=== PATIENT | female | born 1935 | race Caucasian/White ===

== ENCOUNTER 2021-04-02 13:40 | Observation (INO) ==
[2021-04-02 14:44] LABS: Basophils # 0.1 K/mcL (0.0-0.2); Basophils % 0.9 %; Eosinophils # 0.3 K/mcL (0.0-0.6); Eosinophils % 3.1 %; Hemoglobin 15.8 g/dL (11.5-15.4); Immature Granulocytes % 0.6 % (0-4); Lymphocytes % 10.5 %; Mean Corpuscular HGB Conc 31.6 g/dL (31.6-35.5); Mean Corpuscular Hemoglobin 27.6 pg (28.0-33.3); Mean Corpuscular Volume 87.3 fL (83.0-100.0); Mean Platelet Volume 9.9 fL (9.4-12.4); Monocytes # 0.9 K/mcL (0.0-1.3); Monocytes % 9.9 %; Neutrophils # 6.8 K/mcL (1.6-8.9); Platelet Count 177 K/mcL (140-400); Red Blood Count 5.73 M/mcL (3.82-4.97); Red Cell Distribution Width 14.3 % (11.5-14.5)
[2021-04-02 15:24] LABS: Troponin I 0.03 ng/mL (< 0.04)
[2021-04-02 15:37] LABS: Albumin 3.7 g/dL (3.5-5.7); Albumin/Globulin Ratio 1.3 (1.1-2.2); Bilirubin,Total 0.4 mg/dL (0.3-1.0); Calcium 9.8 mg/dL (8.6-10.3); Globulin 2.9 g/dL (2.4-3.5); Total Protein 6.6 g/dL (6.4-8.9)
[2021-04-02 15:53] LABS: Bilirubin,Urine Negative (Negative); Blood,Urine Negative (Negative); Clarity,Urine Clear (Clear); Color,Urine Colorless (Yellow); Glucose,Urine (UA) Normal (Normal); Ketones,Urine Negative (Negative); Leukocyte Esterase,Urine Negative (Negative); Nitrite,Urine Negative (Negative); Protein,Urine Negative (Neg-Trace); Specific Gravity,Urine 1.009 (1.010-1.025); Urobilinogen,Urine Normal (Normal)
[2021-04-02] MEDS ORDERED: Naloxone 0.4 MG/ML INJ IVP PRN (17:30)
[2021-04-02] MEDS ORDERED: Melatonin 3 MG TABLET PO PRN (17:30)
[2021-04-02] MEDS ORDERED: Ondansetron 4 MG/2 ML VIAL IVP PRN (17:30)
[2021-04-02] MEDS ORDERED: Acetaminophen 325 MG TABLET PO PRN (17:30)
[2021-04-02 18:50] LABS: Thyroid Stimulating Hormone 0.16 mcIU/mL (0.340-5.600)
[2021-04-02] MEDS ORDERED: *HR* Metoprolol 5 MG/5 ML VIAL IVP PRN (19:20)
[2021-04-02] MEDS: Aspirin Enteric Coated 81 MG Tablet PO SCH (19:46)
[2021-04-03 03:10] LABS: BUN/Creatinine Ratio 17 (6-26); Blood Urea Nitrogen 18 mg/dL (8-23); Calcium 9.6 mg/dL (8.6-10.3); Carbon Dioxide 23 mEq/L (23-29); Chloride 103 mEq/L (98-107); Chol/HDL Ratio 3.9 (0-4.9); Cholesterol 194 mg/dL (< 200); Glucose 104 mg/dL (70-105); HDL Cholesterol 50 mg/dL (40-59); Hemoglobin 15.3 g/dL (11.5-15.4); LDL Cholesterol,Calculated 121 mg/dL (< 100); Mean Corpuscular HGB Conc 33.3 g/dL (31.6-35.5); Mean Corpuscular Hemoglobin 28.5 pg (28.0-33.3); Mean Corpuscular Volume 85.7 fL (83.0-100.0); Mean Platelet Volume 10.1 fL (9.4-12.4); Osmolality,Calculated 282 (280-300); Platelet Count 170 K/mcL (140-400); Red Blood Count 5.37 M/mcL (3.82-4.97); Sodium 135 mEq/L (136-145); Triglycerides 116 mg/dL (< 150); White Blood Count 8.1 K/mcL (4.3-11.1); eGFR For African Americans > 60 (> 60); eGFR For Non-African Americans 51 (> 60)
[2021-04-03] MEDS: Aspirin Enteric Coated 81 MG Tablet PO SCH (07:51)
[2021-04-03 08:05] LABS: Estimated Average Glucose 131 mg/dl; Hemoglobin A1C 6.2 %
[2021-04-03] MEDS ORDERED: Isovue-370 500 ML BOTTLE IVP ONE (08:37)
[2021-04-03] MEDS ORDERED: Loratadine 10 MG TABLET PO SCH (09:00)
[2021-04-03] MEDS ORDERED: Magnesium Oxide 400 MG TABLET PO SCH (09:00)
[2021-04-03] MEDS ORDERED: atenoloL 25 MG TABLET PO SCH (09:00)
[2021-04-03 10:23] VITALS: BP 140/76
[2021-04-03 16:14] LABS: Triiodothyronine (T3) Total 1.56 ng/mL (0.87-1.78)
== END 2021-04-03 17:57 | disposition home or self-care (01) ==
LOC: 3BNU 13:40 → EMEROOARM 13:40 → 3BNU 17:33
PROVIDERS: ADMIT Internal Medicine; ATTEND Internal Medicine

== ENCOUNTER 2022-05-01 16:43 | Inpatient (IN) ==
[2022-05-01 17:24] LABS: Basophils # 0.1 K/mcL (0.0-0.2); Basophils % 0.8 %; Eosinophils # 0.3 K/mcL (0.0-0.6); Eosinophils % 2.6 %; Hematocrit 43.9 % (35.3-44.9); Immature Granulocytes % 0.4 % (0-4); Lymphocytes # 1.5 K/mcL (0.6-4.6); Lymphocytes % 15.1 %; Mean Corpuscular HGB Conc 31.9 g/dL (31.6-35.5); Mean Corpuscular Hemoglobin 26.9 pg (28.0-33.3); Mean Corpuscular Volume 84.3 fL (83.0-100.0); Mean Platelet Volume 9.9 fL (9.4-12.4); Monocytes # 1.3 K/mcL (0.0-1.3); Monocytes % 12.6 %; Platelet Count 207 K/mcL (140-400); Red Blood Count 5.21 M/mcL (3.82-4.97); Red Cell Distribution Width 16.1 % (11.5-14.5); Segmented Neutrophils % 68.5 %; White Blood Count 10.2 K/mcL (4.3-11.1)
[2022-05-01 17:44] LABS: Calcium 10.4 mg/dL (8.6-10.3); Potassium 4.4 mEq/L (3.5-5.1); Troponin I 6.57 ng/mL (< 0.04)
[2022-05-01] MEDS ORDERED: Iopamidol - 370 500 ML MLS IVP ONE (18:07)
[2022-05-01 20:26] LABS: Influenza A PCR Negative (Negative); Influenza B PCR Negative (Negative); Resp. Syncytial Virus PCR Negative (Negative)
[2022-05-01 20:27] LABS: SARS-CoV-2 by PCR (In House) Negative (Negative)
[2022-05-01] MEDS ORDERED: *HR* Heparin 5,000 UNIT/ML VIAL IVP ONE (20:41)
[2022-05-01] MEDS ORDERED: *HR* Heparin 5,000 UNIT/ML VIAL IVP PRN ×2 (20:41)
[2022-05-01] MEDS ORDERED: Aspirin 325 MG TABLET PO ONE (20:41)
[2022-05-01] MEDS ORDERED: Furosemide 20 MG/2 ML VIAL IVP ONE (20:54)
[2022-05-01] MEDS: Heparin 25,000UNIT/250ML 1/2NS 25,000 UNIT/250 ML IV.SOLN IVC SCH (21:10)
[2022-05-01] MEDS ORDERED: Melatonin 3 MG TABLET PO PRN (21:24)
[2022-05-01] MEDS ORDERED: Naloxone 0.4 MG/ML INJ IVP PRN (21:24)
[2022-05-01] MEDS ORDERED: Nystatin Cream 15 GM TUBE TP PRN (21:27)
[2022-05-01 21:47] LABS: INR 1.1; Prothrombin Time 11.8 Seconds (9.4-12.1)
[2022-05-01 21:49] LABS: Activated Partial Thrombo Time 35.5 Seconds (26.0-36.0)
[2022-05-01 22:07] LABS: Heparin anti-factor XA UFH < 0.04 IU/mL (0.30-0.70)
[2022-05-01] MEDS: Nitroglycerin 0.4 MG TAB.SUBL SL PRN ×2 (22:25→22:35)
[2022-05-01] MEDS: diazePAM 5 MG TABLET PO SCH (22:30)
[2022-05-02 03:23] LABS: Basophils # 0.1 K/mcL (0.0-0.2); Basophils % 0.6 %; Eosinophils # 0.1 K/mcL (0.0-0.6); Eosinophils % 0.8 %; Hematocrit 42.2 % (35.3-44.9); Hemoglobin 13.7 g/dL (11.5-15.4); Immature Granulocytes % 0.4 % (0-4); Lymphocytes # 1.5 K/mcL (0.6-4.6); Lymphocytes % 13.4 %; Mean Corpuscular HGB Conc 32.5 g/dL (31.6-35.5); Mean Corpuscular Hemoglobin 26.7 pg (28.0-33.3); Mean Corpuscular Volume 82.3 fL (83.0-100.0); Mean Platelet Volume 10.3 fL (9.4-12.4); Monocytes # 1.2 K/mcL (0.0-1.3); Monocytes % 10.2 %; Neutrophils # 8.4 K/mcL (1.6-8.9); Platelet Count 204 K/mcL (140-400); Red Blood Count 5.13 M/mcL (3.82-4.97); Red Cell Distribution Width 16.2 % (11.5-14.5); Segmented Neutrophils % 74.6 %; White Blood Count 11.3 K/mcL (4.3-11.1)
[2022-05-02 03:42] LABS: Calcium 9.7 mg/dL (8.6-10.3); Chol/HDL Ratio 2.8 (0-4.9); Magnesium 1.8 mg/dL (1.6-2.6); Potassium 4.2 mEq/L (3.5-5.1)
[2022-05-02] MEDS ORDERED: Perflutren Lipid Microsphere 1.3 ML in 0.9 % Sodium Chloride 8.7 ML IVP PRN (07:59)
[2022-05-02] MEDS ORDERED: Furosemide 40 MG/4 ML VIAL IVP SCH (08:00)
[2022-05-02] MEDS ORDERED: polyethylene glycoL 3350 17 GM POWD.PACK PO SCH (09:00)
[2022-05-02] MEDS: Loratadine 10 MG TABLET PO SCH (10:10)
[2022-05-02] MEDS: atenoloL 25 MG TABLET PO SCH (10:10)
[2022-05-02] MEDS: Aspirin Enteric Coated 81 MG Tablet PO SCH (10:10)
[2022-05-02] MEDS: Magnesium Oxide 400 MG TABLET PO SCH (10:10)
[2022-05-02] MEDS ORDERED: 0.9 % Sodium Chloride 250 ML IVC ONE ×2 (19:27→23:34)
[2022-05-02] MEDS: diazePAM 5 MG TABLET PO SCH (20:53)
[2022-05-02] MEDS ORDERED: 0.9 % Sodium Chloride 250 ML ONE (23:40)
[2022-05-03 05:42] LABS: Basophils # 0.1 K/mcL (0.0-0.2); Basophils % 1.3 %; Eosinophils # 0.5 K/mcL (0.0-0.6); Eosinophils % 5.2 %; Hematocrit 38.8 % (35.3-44.9); Hemoglobin 12.6 g/dL (11.5-15.4); Immature Granulocytes % 0.3 % (0-4); Lymphocytes # 1.8 K/mcL (0.6-4.6); Lymphocytes % 20.8 %; Mean Corpuscular HGB Conc 32.5 g/dL (31.6-35.5); Mean Corpuscular Hemoglobin 27.3 pg (28.0-33.3); Mean Platelet Volume 9.9 fL (9.4-12.4); Monocytes # 1.2 K/mcL (0.0-1.3); Platelet Count 176 K/mcL (140-400); Red Blood Count 4.62 M/mcL (3.82-4.97); Red Cell Distribution Width 16.5 % (11.5-14.5); Segmented Neutrophils % 58.4 %; White Blood Count 8.6 K/mcL (4.3-11.1)
[2022-05-03 06:05] LABS: Troponin I 3.39 ng/mL (< 0.04)
[2022-05-03] MEDS: Heparin 25,000UNIT/250ML 1/2NS 25,000 UNIT/250 ML IV.SOLN IVC SCH (06:08)
[2022-05-03 06:17] LABS: Thyroid Stimulating Hormone 1.546 mcIU/mL (0.340-5.600)
[2022-05-03 06:54] LABS: Calcium 8.8 mg/dL (8.6-10.3); Magnesium 1.8 mg/dL (1.6-2.6); Potassium 3.8 mEq/L (3.5-5.1)
[2022-05-03] MEDS ORDERED: Furosemide 40 MG/4 ML VIAL IVP SCH (09:00)
[2022-05-03] MEDS: atenoloL 25 MG TABLET PO SCH (09:21)
[2022-05-03] MEDS: Aspirin Enteric Coated 81 MG Tablet PO SCH (09:29)
[2022-05-03] MEDS: Loratadine 10 MG TABLET PO SCH (09:29)
[2022-05-03] MEDS: Magnesium Oxide 400 MG TABLET PO SCH (09:29)
[2022-05-03] MEDS: Acetaminophen 325 MG TABLET PO PRN (16:17)
[2022-05-03] MEDS ORDERED: Pantoprazole 40 MG VIAL IVP ONE (17:54)
[2022-05-03] MEDS ORDERED: Morphine Sulfate 2 MG/ML SYRINGE IVP PRN (17:55)
[2022-05-03] MEDS: diazePAM 5 MG TABLET PO SCH (19:45)
[2022-05-03] MEDS: Nitroglycerin 0.4 MG TAB.SUBL SL PRN (22:01)
[2022-05-04 01:47] LABS: Basophils # 0.1 K/mcL (0.0-0.2); Eosinophils # 0.5 K/mcL (0.0-0.6); Eosinophils % 5.2 %; Hematocrit 42.2 % (35.3-44.9); Hemoglobin 13.2 g/dL (11.5-15.4); Immature Granulocytes % 0.5 % (0-4); Lymphocytes # 1.8 K/mcL (0.6-4.6); Lymphocytes % 18.9 %; Mean Corpuscular HGB Conc 31.3 g/dL (31.6-35.5); Mean Corpuscular Hemoglobin 26.6 pg (28.0-33.3); Mean Corpuscular Volume 85.1 fL (83.0-100.0); Mean Platelet Volume 10.8 fL (9.4-12.4); Monocytes # 1.4 K/mcL (0.0-1.3); Monocytes % 14.7 %; Neutrophils # 5.5 K/mcL (1.6-8.9); Platelet Count 192 K/mcL (140-400); Red Blood Count 4.96 M/mcL (3.82-4.97); Red Cell Distribution Width 16.6 % (11.5-14.5); Segmented Neutrophils % 59.7 %; White Blood Count 9.3 K/mcL (4.3-11.1)
[2022-05-04 02:06] LABS: Calcium 9.3 mg/dL (8.6-10.3); Magnesium 1.9 mg/dL (1.6-2.6); Potassium 3.7 mEq/L (3.5-5.1)
[2022-05-04] MEDS: Nitroglycerin 0.4 MG TAB.SUBL SL PRN ×3 (08:18→08:29)
[2022-05-04] MEDS: Aspirin Enteric Coated 81 MG Tablet PO SCH (09:45)
[2022-05-04] MEDS: Loratadine 10 MG TABLET PO SCH (09:45)
[2022-05-04] MEDS: Magnesium Oxide 400 MG TABLET PO SCH (09:46)
[2022-05-04] MEDS: atenoloL 25 MG TABLET PO SCH (09:46)
[2022-05-04] MEDS ORDERED: 0.9 % Sodium Chloride 2,000 ML ONE (10:09)
[2022-05-04] MEDS ORDERED: Iopamidol - 370 200 ML INFUS..BTL ONE (10:10)
[2022-05-04] MEDS ORDERED: Heparin 1,000 UNITS/500 mL 500 ML ONE (10:10)
[2022-05-04] MEDS ORDERED: Nitroglycerin 1,000 MCG/5 ML VIAL IV ONE (10:10)
[2022-05-04] MEDS ORDERED: *HR* Heparin 10,000 UNIT/10 ML VIAL ONE (10:10)
[2022-05-04] MEDS ORDERED: Tirofiban 12.5 MG/250ML 12.5 MG/250 ML BAG IVC SCH (11:45)
[2022-05-04] MEDS: Ondansetron 4 MG/2 ML VIAL IVP PRN (18:57)
[2022-05-04] MEDS: diazePAM 5 MG TABLET PO SCH (19:49)
[2022-05-05 02:35] LABS: Basophils % 0.5 %; Eosinophils % 0.5 %; Hematocrit 40.5 % (35.3-44.9); Hemoglobin 13.1 g/dL (11.5-15.4); Immature Granulocytes % 0.5 % (0-4); Lymphocytes # 0.7 K/mcL (0.6-4.6); Lymphocytes % 8.7 %; Mean Corpuscular HGB Conc 32.3 g/dL (31.6-35.5); Mean Corpuscular Hemoglobin 27.3 pg (28.0-33.3); Mean Corpuscular Volume 84.4 fL (83.0-100.0); Mean Platelet Volume 10.3 fL (9.4-12.4); Monocytes # 0.9 K/mcL (0.0-1.3); Monocytes % 10.7 %; Neutrophils # 6.7 K/mcL (1.6-8.9); Platelet Count 180 K/mcL (140-400); Red Cell Distribution Width 16.5 % (11.5-14.5); Segmented Neutrophils % 79.1 %; White Blood Count 8.5 K/mcL (4.3-11.1)
[2022-05-05 02:58] LABS: INR 1.1; Prothrombin Time 12.1 Seconds (9.4-12.1)
[2022-05-05 03:26] LABS: Albumin 3.4 g/dL (3.5-5.7); Albumin/Globulin Ratio 1.4 (1.1-2.2); Bilirubin,Total 1.7 mg/dL (0.3-1.0); Calcium 9.3 mg/dL (8.6-10.3); Globulin 2.5 g/dL (2.4-3.5); Magnesium 1.9 mg/dL (1.6-2.6); Potassium 4.3 mEq/L (3.5-5.1); Total Protein 5.9 g/dL (6.4-8.9)
[2022-05-05] MEDS: Aspirin Enteric Coated 81 MG Tablet PO SCH (07:33)
[2022-05-05] MEDS: Loratadine 10 MG TABLET PO SCH (07:33)
[2022-05-05] MEDS: Magnesium Oxide 400 MG TABLET PO SCH (07:33)
[2022-05-05] MEDS: atenoloL 25 MG TABLET PO SCH (07:34)
[2022-05-05] MEDS ORDERED: 0.9 % Sodium Chloride 250 ML IVC ONE (07:44)
[2022-05-05] MEDS: Ondansetron 4 MG/2 ML VIAL IVP PRN (20:01)
[2022-05-05] MEDS ORDERED: *HR* Metoprolol 5 MG/5 ML VIAL IVP ONE ×2 (20:12→20:15)
[2022-05-05] MEDS ORDERED: DilTIAZem 50 MG/50 ML IV.SOLN IVC SCH (21:15)
[2022-05-05] MEDS: Apixaban 2.5 MG TABLET PO SCH (22:01)
[2022-05-05] MEDS: diazePAM 5 MG TABLET PO SCH (22:05)
[2022-05-05] MEDS ORDERED: Furosemide 20 MG/2 ML VIAL IVP ONE (22:33)
[2022-05-06] MEDS ORDERED: 0.9 % Sodium Chloride 250 ML IVC ONE (00:30)
[2022-05-06] MEDS ORDERED: 0.9 % Sodium Chloride 250 ML IV ONE (01:00)
[2022-05-06] MEDS ORDERED: Albumin 25% 25gram/100mL 25 GM/100 ML IV.SOLN IVPB ONE (01:07)
[2022-05-06 03:27] LABS: Influenza A PCR Negative (Negative); Influenza B PCR Negative (Negative); Resp. Syncytial Virus PCR Negative (Negative)
[2022-05-06 03:48] LABS: ABG Base Excess -4 mEq/L (-2 to 3); ABG HCO3 20 mEq/L (21-27); ABG Oxygen Saturation 97 % (95-98); ABG PCO2 32 mmHg (35-45); ABG PO2 86 mmHg (85-104); ABG TCO2 21 mEq/L (20-26)
[2022-05-06 03:49] LABS: SARS-CoV-2 by PCR (In House) Negative (Negative)
[2022-05-06 04:26] LABS: Basophils # 0.1 K/mcL (0.0-0.2); Basophils % 0.2 %; Hematocrit 34.3 % (35.3-44.9); Lymphocytes # 0.5 K/mcL (0.6-4.6); Lymphocytes % 2.2 %; Mean Corpuscular HGB Conc 31.5 g/dL (31.6-35.5); Mean Corpuscular Hemoglobin 26.7 pg (28.0-33.3); Mean Corpuscular Volume 84.9 fL (83.0-100.0); Mean Platelet Volume 10.7 fL (9.4-12.4); Monocytes % 8.6 %; Platelet Count 146 K/mcL (140-400); Red Blood Count 4.04 M/mcL (3.82-4.97)
[2022-05-06 04:27] LABS: Hemoglobin 10.8 g/dL (11.5-15.4); Neutrophils # 19.8 K/mcL (1.6-8.9); White Blood Count 22.7 K/mcL (4.3-11.1)
[2022-05-06 04:54] LABS: Calcium 9.1 mg/dL (8.6-10.3)
[2022-05-06] MEDS: Cefepime HCl 1,000 MG in 0.9 % Sodium Chloride 10 ML IVPB SCH ×2 (06:06→17:22)
[2022-05-06] MEDS ORDERED: 0.9 % Sodium Chloride 500 ML IVC ONE (06:50)
[2022-05-06 09:46] LABS: VBG HCO3 19 mEq/L (21-27); VBG PCO2 29 mmHg (41-51); VBG PH 7.44 pH Units (7.32-7.42); VBG PO2 222 mmHg (25-50)
[2022-05-06] MEDS: Aspirin Enteric Coated 81 MG Tablet PO SCH (10:54)
[2022-05-06] MEDS: Loratadine 10 MG TABLET PO SCH (10:54)
[2022-05-06] MEDS: Metoprolol XL (24 HR) Succ 25 MG TAB.ER.24H PO SCH (10:54)
[2022-05-06] MEDS: Magnesium Oxide 400 MG TABLET PO SCH (10:54)
[2022-05-06] MEDS: Apixaban 2.5 MG TABLET PO SCH (10:54)
[2022-05-06] MEDS: diazePAM 5 MG TABLET PO SCH (20:30)
[2022-05-06 23:05] LABS: Bacteria,Urine Few per hpf (None-Few); Bilirubin,Urine Small (Negative); Blood,Urine Small (Negative); Clarity,Urine Turbid (Clear); Color,Urine Dark-Yellow (Yellow); Glucose,Urine (UA) Normal (Normal); Hyaline Casts,Urine Few per lpf (None Seen); Ketones,Urine Trace mg/dL (Negative); Leukocyte Esterase,Urine Small (Negative); Mucus,Urine Few per lpf (None-Few); Nitrite,Urine Negative (Negative); Protein,Urine 70 mg/dL (Neg-Trace); RBC,Urine 50-100 per hpf (0-3); Specific Gravity,Urine 1.027 (1.010-1.025); Squamous Epithelial Cell,Urine Few per hpf (None-Few); WBC,Urine 15-30 per hpf (0-3)
[2022-05-06 23:17] LABS: Creatinine,Urine 54 mg/dL; Sodium, Urine < 10.0 mEq/L
[2022-05-07 01:59] LABS: Basophils % 0.2 %; Eosinophils % 0.1 %; Hemoglobin 10.8 g/dL (11.5-15.4)
[2022-05-07 02:00] LABS: Basophils # 0.1 K/mcL (0.0-0.2); Hematocrit 33.5 % (35.3-44.9); Immature Granulocytes % 2.2 % (0-4); Lymphocytes # 1.2 K/mcL (0.6-4.6); Lymphocytes % 4.3 %; Mean Corpuscular HGB Conc 32.2 g/dL (31.6-35.5); Mean Corpuscular Hemoglobin 27.1 pg (28.0-33.3); Mean Platelet Volume 10.5 fL (9.4-12.4); Monocytes # 2.5 K/mcL (0.0-1.3); Monocytes % 8.9 %; Neutrophils # 23.8 K/mcL (1.6-8.9); Platelet Count 135 K/mcL (140-400); Red Blood Count 3.99 M/mcL (3.82-4.97); Red Cell Distribution Width 17.1 % (11.5-14.5); Segmented Neutrophils % 84.3 %; White Blood Count 28.2 K/mcL (4.3-11.1)
[2022-05-07 02:16] LABS: Calcium 8.8 mg/dL (8.6-10.3); Potassium 4.2 mEq/L (3.5-5.1)
[2022-05-07 02:18] LABS: Albumin 3.3 g/dL (3.5-5.7); Albumin/Globulin Ratio 1.4 (1.1-2.2); Bilirubin,Direct 2.7 mg/dL (0.0-0.2); Bilirubin,Total 3.7 mg/dL (0.3-1.0); Globulin 2.4 g/dL (2.4-3.5); Total Protein 5.7 g/dL (6.4-8.9)
[2022-05-07] MEDS: Cefepime HCl 1,000 MG in 0.9 % Sodium Chloride 10 ML IVPB SCH ×2 (06:10→17:43)
[2022-05-07] MEDS: Magnesium Oxide 400 MG TABLET PO SCH (08:31)
[2022-05-07] MEDS: Metoprolol XL (24 HR) Succ 25 MG TAB.ER.24H PO SCH (08:31)
[2022-05-07] MEDS: Aspirin Enteric Coated 81 MG Tablet PO SCH (08:31)
[2022-05-07] MEDS: Loratadine 10 MG TABLET PO SCH (08:31)
[2022-05-07 09:23] LABS: CTX-M ESBL Gene Not Detected (Not Detect); IMP Carbapenem-Resist Gene Not Detected (Not Detect); NDM Carbapenem-Resist Gene Not Detected (Not Detect); OXA-48-like Carbap-Resist Gene Not Detected (Not Detect); VIM Carbapenem-Resist Gene Not Detected (Not Detect); blaKPC Carbapenem-Resist Gene Not Detected (Not Detect)
[2022-05-07 09:24] LABS: A.calcoaceticus-baumannii cplx Not Detected (Not Detect); Bacteroides fragilis by PCR Not Detected (Not Detect); Candida albicans by PCR Not Detected (Not Detect); Candida auris by PCR Not Detected (Not Detect); Candida glabrata by PCR Not Detected (Not Detect); Candida krusei by PCR Not Detected (Not Detect); Candida parapsilosis by PCR Not Detected (Not Detect); Candida tropicalis by PCR Not Detected (Not Detect); Crypto. neoformans/gattii PCR Not Detected (Not Detect); Enterobacter cloacae Cmplx PCR Not Detected (Not Detect); Enterobacterales by PCR DETECTED (Not Detect); Enterococcus faecalis by PCR Not Detected (Not Detect); Enterococcus faecium by PCR Not Detected (Not Detect); Escherichia coli by PCR Not Detected (Not Detect); Klebs. pneumoniae group by PCR Not Detected (Not Detect); Klebsiella aerogenes by PCR Not Detected (Not Detect); Klebsiella oxytoca by PCR Not Detected (Not Detect); Proteus by PCR Not Detected (Not Detect); Pseudomonas aeruginosa by PCR Not Detected (Not Detect); Salmonella species by PCR Not Detected (Not Detect); Serratia marcescens by PCR Not Detected (Not Detect); Staph epidermidis by PCR Not Detected (Not Detect); Staph lugdunensis by PCR Not Detected (Not Detect); Staphylococcus aureus by PCR Not Detected (Not Detect); Staphylococcus by PCR Not Detected (Not Detect); Stenotrophomonas maltophilia Not Detected (Not Detect); Streptococcus agalactiae(B)PCR Not Detected (Not Detect); Streptococcus by PCR Not Detected (Not Detect); Streptococcus pneumoniae PCR Not Detected (Not Detect); Streptococcus pyogenes (A) PCR Not Detected (Not Detect)
[2022-05-07 10:05] LABS: INR 1.6; Prothrombin Time 18.2 Seconds (9.4-12.1)
[2022-05-07 10:13] LABS: Lactate Dehydrogenase 167 Units/L (140-271)
[2022-05-07 13:44] LABS: Glucose,Pleural Fluid 115 mg/dL (No Ref Range); LDH,Pleural Fluid 65 Units/L (No Ref Range); Total Protein,Pleural Fluid < 2.0 g/dL
[2022-05-07 14:14] LABS: RBC,Pleural Fluid 10000 RBC/mcL
[2022-05-07 14:58] LABS: Appearance of Pleural Fl Hazy (Clear); Basophils,Pleural Fluid 0 %
[2022-05-07] MEDS: MetroNIDAZOLE 500 MG/100 ML 500 MG/100 ML BAG IVPB SCH ×2 (17:44→23:29)
[2022-05-07] MEDS: diazePAM 5 MG TABLET PO SCH (19:52)
[2022-05-08] MEDS: Cefepime HCl 1,000 MG in 0.9 % Sodium Chloride 10 ML IVPB SCH ×2 (05:29→18:52)
[2022-05-08 05:48] LABS: Basophils # 0.1 K/mcL (0.0-0.2); Basophils % 0.4 %; Eosinophils # 0.3 K/mcL (0.0-0.6); Eosinophils % 1.7 %; Hematocrit 35.1 % (35.3-44.9); Hemoglobin 11.1 g/dL (11.5-15.4); Immature Granulocytes % 1.4 % (0-4); Lymphocytes # 1.1 K/mcL (0.6-4.6); Lymphocytes % 5.2 %; Mean Corpuscular HGB Conc 31.6 g/dL (31.6-35.5); Mean Corpuscular Hemoglobin 27.5 pg (28.0-33.3); Mean Corpuscular Volume 86.9 fL (83.0-100.0); Mean Platelet Volume 10.5 fL (9.4-12.4); Monocytes # 1.3 K/mcL (0.0-1.3); Monocytes % 6.3 %; Neutrophils # 17.1 K/mcL (1.6-8.9); Platelet Count 140 K/mcL (140-400); Red Blood Count 4.04 M/mcL (3.82-4.97); Red Cell Distribution Width 17.5 % (11.5-14.5); White Blood Count 20.1 K/mcL (4.3-11.1)
[2022-05-08 06:33] LABS: Albumin 3.1 g/dL (3.5-5.7); Albumin/Globulin Ratio 1.3 (1.1-2.2); Bilirubin,Direct 1.4 mg/dL (0.0-0.2); Bilirubin,Indirect 1.1 mg/dL (0.0-1.0); Bilirubin,Total 2.5 mg/dL (0.3-1.0); Calcium 7.4 mg/dL (8.6-10.3); Globulin 2.4 g/dL (2.4-3.5); Magnesium 2.1 mg/dL (1.6-2.6); Potassium 4.1 mEq/L (3.5-5.1); Total Protein 5.5 g/dL (6.4-8.9)
[2022-05-08] MEDS: Aspirin Enteric Coated 81 MG Tablet PO SCH (10:08)
[2022-05-08] MEDS: Metoprolol XL (24 HR) Succ 25 MG TAB.ER.24H PO SCH (10:09)
[2022-05-08] MEDS: Apixaban 2.5 MG TABLET PO SCH ×2 (10:09→21:45)
[2022-05-08] MEDS: Loratadine 10 MG TABLET PO SCH (10:09)
[2022-05-08] MEDS: Magnesium Oxide 400 MG TABLET PO SCH (10:09)
[2022-05-08] MEDS: MetroNIDAZOLE 500 MG/100 ML 500 MG/100 ML BAG IVPB SCH ×2 (10:29→16:31)
[2022-05-08] MEDS ORDERED: Albumin 25% 25gram/100mL 25 GM/100 ML IV.SOLN IVPB ONE (17:34)
[2022-05-08] MEDS: Acetaminophen 325 MG TABLET PO PRN (18:48)
[2022-05-08] MEDS: diazePAM 5 MG TABLET PO SCH (21:45)
[2022-05-08] MEDS ORDERED: Ketorolac 30 MG/ML VIAL IVP ONE (21:59)
[2022-05-09] MEDS: MetroNIDAZOLE 500 MG/100 ML 500 MG/100 ML BAG IVPB SCH ×4 (01:23→23:57)
[2022-05-09 02:07] LABS: Basophils # 0.1 K/mcL (0.0-0.2); Basophils % 0.4 %; Eosinophils # 0.4 K/mcL (0.0-0.6); Hematocrit 33.1 % (35.3-44.9); Hemoglobin 10.7 g/dL (11.5-15.4); Immature Granulocytes % 1.1 % (0-4); Lymphocytes % 8.7 %; Mean Corpuscular HGB Conc 32.3 g/dL (31.6-35.5); Mean Corpuscular Hemoglobin 26.8 pg (28.0-33.3); Mean Platelet Volume 10.5 fL (9.4-12.4); Monocytes # 1.1 K/mcL (0.0-1.3); Monocytes % 9.3 %; Neutrophils # 9.2 K/mcL (1.6-8.9); Platelet Count 133 K/mcL (140-400); Red Blood Count 3.99 M/mcL (3.82-4.97); Red Cell Distribution Width 17.3 % (11.5-14.5); Segmented Neutrophils % 77.5 %; White Blood Count 11.9 K/mcL (4.3-11.1)
[2022-05-09 02:25] LABS: Albumin 3.4 g/dL (3.5-5.7); Albumin/Globulin Ratio 1.4 (1.1-2.2); Bilirubin,Total 1.8 mg/dL (0.3-1.0); Calcium 8.9 mg/dL (8.6-10.3); Globulin 2.4 g/dL (2.4-3.5); Magnesium 2.3 mg/dL (1.6-2.6); Phosphorous 2.3 mg/dL (2.7-4.5); Potassium 4.2 mEq/L (3.5-5.1); Total Protein 5.8 g/dL (6.4-8.9)
[2022-05-09 02:42] LABS: Fluid Source for Cholesterol PLEURAL FLUID
[2022-05-09] MEDS: Cefepime HCl 1,000 MG in 0.9 % Sodium Chloride 10 ML IVPB SCH ×2 (06:18→16:11)
[2022-05-09] MEDS: Aspirin Enteric Coated 81 MG Tablet PO SCH (07:31)
[2022-05-09] MEDS: Metoprolol XL (24 HR) Succ 25 MG TAB.ER.24H PO SCH (07:31)
[2022-05-09] MEDS: Apixaban 2.5 MG TABLET PO SCH ×2 (07:31→19:58)
[2022-05-09] MEDS: Magnesium Oxide 400 MG TABLET PO SCH (07:31)
[2022-05-09] MEDS: Loratadine 10 MG TABLET PO SCH (07:31)
[2022-05-09] MEDS: Ondansetron 4 MG/2 ML VIAL IVP PRN (07:35)
[2022-05-09 09:20] LABS: Cholesterol,Body Fluid 13 mg/dL
[2022-05-09 12:55] LABS: Adenovirus F 40/41 PCR Not detected (Not detect); Astrovirus PCR Not detected (Not detect); C.difficile Toxin A/B Gene PCR Not detected (Not detect); Campylobacter by PCR Not detected (Not detect); Cryptosporidium by PCR Not detected (Not detect); Cyclospora cayetanensis PCR Not detected (Not detect); Entamoeba histolytica PCR Not detected (Not detect); Enteroaggregative E.coli(EAEC) Not detected (Not detect); Enteropathogenic E.coli(EPEC) Not detected (Not detect); Enterotoxigenic E.coli (ETEC) Not detected (Not detect); Giardia lamblia PCR Not detected (Not detect); Norovirus GI/GII PCR Not detected (Not detect); Plesiomonas shigelloides PCR Not detected (Not detect); Rotavirus A PCR Not detected (Not detect); Salmonella PCR Not detected (Not detect); Sapovirus PCR Not detected (Not detect); Shig/EnteroinvasiveE coli EIEC Not detected (Not detect); Shigalike tox-prod E coli STEC Not detected (Not detect); Vibrio PCR Not detected (Not detect); Vibrio cholerae PCR Not detected (Not detect); Yersinia enterocolitica PCR Not detected (Not detect)
[2022-05-09] MEDS ORDERED: Albumin 25% 25gram/100mL 25 GM/100 ML IV.SOLN IVPB ONE (14:55)
[2022-05-09] MEDS: Lactobacillus 1 EACH CAP.SPRINK PO SCH (14:59)
[2022-05-09] MEDS: diazePAM 5 MG TABLET PO SCH (19:58)
[2022-05-10 01:27] LABS: Basophils # 0.1 K/mcL (0.0-0.2); Basophils % 0.4 %; Eosinophils # 0.3 K/mcL (0.0-0.6); Eosinophils % 2.4 %; Hematocrit 32.4 % (35.3-44.9); Hemoglobin 10.5 g/dL (11.5-15.4); Immature Granulocytes % 0.8 % (0-4); Lymphocytes # 1.2 K/mcL (0.6-4.6); Lymphocytes % 8.8 %; Mean Corpuscular HGB Conc 32.4 g/dL (31.6-35.5); Mean Corpuscular Hemoglobin 26.7 pg (28.0-33.3); Mean Corpuscular Volume 82.4 fL (83.0-100.0); Mean Platelet Volume 10.7 fL (9.4-12.4); Monocytes # 1.4 K/mcL (0.0-1.3); Neutrophils # 10.4 K/mcL (1.6-8.9); Platelet Count 142 K/mcL (140-400); Red Blood Count 3.93 M/mcL (3.82-4.97); Red Cell Distribution Width 17.5 % (11.5-14.5); Segmented Neutrophils % 77.6 %; White Blood Count 13.5 K/mcL (4.3-11.1)
[2022-05-10 01:48] LABS: Albumin 3.2 g/dL (3.5-5.7); Albumin/Globulin Ratio 1.5 (1.1-2.2); Calcium 8.6 mg/dL (8.6-10.3); Globulin 2.2 g/dL (2.4-3.5); Magnesium 2.6 mg/dL (1.6-2.6); Phosphorous 2.4 mg/dL (2.7-4.5); Total Protein 5.4 g/dL (6.4-8.9)
[2022-05-10] MEDS: Cefepime HCl 1,000 MG in 0.9 % Sodium Chloride 10 ML IVPB SCH ×2 (05:58→16:26)
[2022-05-10] MEDS: Aspirin Enteric Coated 81 MG Tablet PO SCH (08:36)
[2022-05-10] MEDS: Furosemide 40 MG/4 ML VIAL IVP SCH (08:37)
[2022-05-10] MEDS: Metoprolol XL (24 HR) Succ 25 MG TAB.ER.24H PO SCH (08:37)
[2022-05-10] MEDS: Apixaban 2.5 MG TABLET PO SCH ×2 (08:37→21:02)
[2022-05-10] MEDS: Magnesium Oxide 400 MG TABLET PO SCH (08:37)
[2022-05-10] MEDS: MetroNIDAZOLE 500 MG/100 ML 500 MG/100 ML BAG IVPB SCH ×2 (08:37→16:27)
[2022-05-10] MEDS: Lactobacillus 1 EACH CAP.SPRINK PO SCH (08:37)
[2022-05-10] MEDS: Loratadine 10 MG TABLET PO SCH (08:37)
[2022-05-10] MEDS ORDERED: Furosemide 40 MG in 0.9 % Sodium Chloride 50 ML IV SCH (09:00)
[2022-05-10] MEDS: Ondansetron 4 MG/2 ML VIAL IVP PRN (18:35)
[2022-05-10] MEDS: diazePAM 5 MG TABLET PO SCH (21:02)
[2022-05-10] MEDS ORDERED: GuaiFENesin/Dextromethorphan TABLET PO PRN (21:37)
[2022-05-11 01:58] LABS: Albumin 3.3 g/dL (3.5-5.7); Albumin/Globulin Ratio 1.3 (1.1-2.2); Bilirubin,Total 1.5 mg/dL (0.3-1.0); Calcium 8.7 mg/dL (8.6-10.3); Globulin 2.5 g/dL (2.4-3.5); Magnesium 2.1 mg/dL (1.6-2.6); Phosphorous 2.2 mg/dL (2.7-4.5); Potassium 4.1 mEq/L (3.5-5.1); Total Protein 5.8 g/dL (6.4-8.9)
[2022-05-11] MEDS: MetroNIDAZOLE 500 MG/100 ML 500 MG/100 ML BAG IVPB SCH ×2 (05:33→08:29)
[2022-05-11] MEDS: Cefepime HCl 1,000 MG in 0.9 % Sodium Chloride 10 ML IVPB SCH (05:42)
[2022-05-11] MEDS: Furosemide 40 MG/4 ML VIAL IVP SCH (08:29)
[2022-05-11] MEDS: Magnesium Oxide 400 MG TABLET PO SCH (08:30)
[2022-05-11] MEDS: Apixaban 2.5 MG TABLET PO SCH ×2 (08:30→21:54)
[2022-05-11] MEDS: Metoprolol XL (24 HR) Succ 25 MG TAB.ER.24H PO SCH (08:30)
[2022-05-11] MEDS: Loratadine 10 MG TABLET PO SCH (08:30)
[2022-05-11] MEDS: Lactobacillus 1 EACH CAP.SPRINK PO SCH (08:30)
[2022-05-11] MEDS: Aspirin Enteric Coated 81 MG Tablet PO SCH (08:30)
[2022-05-11] MEDS: Ondansetron 4 MG/2 ML VIAL IVP PRN (10:06)
[2022-05-11] MEDS: diazePAM 5 MG TABLET PO SCH (21:53)
[2022-05-12 01:55] LABS: Basophils # 0.1 K/mcL (0.0-0.2); Basophils % 0.9 %; Eosinophils # 0.4 K/mcL (0.0-0.6); Eosinophils % 4.2 %; Hematocrit 37.7 % (35.3-44.9); Immature Granulocytes % 2.8 % (0-4); Lymphocytes # 1.4 K/mcL (0.6-4.6); Lymphocytes % 14.5 %; Mean Corpuscular HGB Conc 32.6 g/dL (31.6-35.5); Mean Corpuscular Hemoglobin 26.5 pg (28.0-33.3); Mean Corpuscular Volume 81.3 fL (83.0-100.0); Mean Platelet Volume 10.4 fL (9.4-12.4); Monocytes # 1.4 K/mcL (0.0-1.3); Platelet Count 197 K/mcL (140-400); Red Blood Count 4.64 M/mcL (3.82-4.97); Red Cell Distribution Width 17.9 % (11.5-14.5); Segmented Neutrophils % 62.6 %; White Blood Count 9.6 K/mcL (4.3-11.1)
[2022-05-12 01:56] LABS: Hemoglobin 12.3 g/dL (11.5-15.4)
[2022-05-12 02:18] LABS: Albumin 3.5 g/dL (3.5-5.7); Albumin/Globulin Ratio 1.3 (1.1-2.2); Bilirubin,Total 2.9 mg/dL (0.3-1.0); Calcium 9.1 mg/dL (8.6-10.3); Globulin 2.8 g/dL (2.4-3.5); Phosphorous 2.5 mg/dL (2.7-4.5); Potassium 4.1 mEq/L (3.5-5.1); Total Protein 6.3 g/dL (6.4-8.9)
[2022-05-12] MEDS: Lactobacillus 1 EACH CAP.SPRINK PO SCH (08:10)
[2022-05-12] MEDS: Magnesium Oxide 400 MG TABLET PO SCH (08:10)
[2022-05-12] MEDS: Aspirin Enteric Coated 81 MG Tablet PO SCH (08:10)
[2022-05-12] MEDS: Apixaban 2.5 MG TABLET PO SCH (08:10)
[2022-05-12] MEDS: Loratadine 10 MG TABLET PO SCH (08:10)
[2022-05-12] MEDS: Metoprolol XL (24 HR) Succ 25 MG TAB.ER.24H PO SCH (08:11)
[2022-05-12] MEDS: Furosemide 40 MG/4 ML VIAL IVP SCH (08:16)
[2022-05-12] MEDS: diazePAM 5 MG TABLET PO SCH (20:29)
[2022-05-12] MEDS: Apixaban 5 MG TABLET PO SCH (20:29)
[2022-05-13 05:00] LABS: INR 1.5; Prothrombin Time 16.6 Seconds (9.4-12.1)
[2022-05-13 05:01] LABS: Basophils # 0.1 K/mcL (0.0-0.2); Basophils % 0.8 %; Eosinophils # 0.4 K/mcL (0.0-0.6); Eosinophils % 4.4 %; Hematocrit 37.5 % (35.3-44.9); Hemoglobin 12.4 g/dL (11.5-15.4); Lymphocytes # 1.1 K/mcL (0.6-4.6); Lymphocytes % 10.6 %; Mean Corpuscular HGB Conc 33.1 g/dL (31.6-35.5); Mean Corpuscular Hemoglobin 26.6 pg (28.0-33.3); Mean Corpuscular Volume 80.5 fL (83.0-100.0); Mean Platelet Volume 10.2 fL (9.4-12.4); Monocytes # 1.3 K/mcL (0.0-1.3); Monocytes % 12.9 %; Neutrophils # 6.9 K/mcL (1.6-8.9); Platelet Count 221 K/mcL (140-400); Red Blood Count 4.66 M/mcL (3.82-4.97); Red Cell Distribution Width 18.3 % (11.5-14.5); Segmented Neutrophils % 68.3 %; White Blood Count 10.1 K/mcL (4.3-11.1)
[2022-05-13 05:03] LABS: Activated Partial Thrombo Time 43.6 Seconds (26.0-36.0)
[2022-05-13 05:20] LABS: Albumin 3.4 g/dL (3.5-5.7); Albumin/Globulin Ratio 1.3 (1.1-2.2); Bilirubin,Total 1.7 mg/dL (0.3-1.0); Calcium 9.1 mg/dL (8.6-10.3); Globulin 2.7 g/dL (2.4-3.5); Phosphorous 3.1 mg/dL (2.7-4.5); Potassium 4.1 mEq/L (3.5-5.1); Total Protein 6.1 g/dL (6.4-8.9)
[2022-05-13] MEDS: Furosemide 40 MG/4 ML VIAL IVP SCH (08:19)
[2022-05-13] MEDS: Aspirin Enteric Coated 81 MG Tablet PO SCH (08:20)
[2022-05-13] MEDS: Lactobacillus 1 EACH CAP.SPRINK PO SCH (08:20)
[2022-05-13] MEDS: Apixaban 5 MG TABLET PO SCH ×2 (08:20→20:41)
[2022-05-13] MEDS: Metoprolol XL (24 HR) Succ 25 MG TAB.ER.24H PO SCH (08:20)
[2022-05-13] MEDS: Loratadine 10 MG TABLET PO SCH (08:20)
[2022-05-13] MEDS: Magnesium Oxide 400 MG TABLET PO SCH (08:20)
[2022-05-13] MEDS: Cefepime HCl 1,000 MG in 0.9 % Sodium Chloride Mini Bag 100 ML IVPB SCH (15:28)
[2022-05-13] MEDS: metroNIDAZOLE 500 MG TABLET PO SCH ×2 (15:28→20:41)
[2022-05-13] MEDS: diazePAM 5 MG TABLET PO SCH (20:41)
[2022-05-14 01:35] LABS: Basophils # 0.1 K/mcL (0.0-0.2); Eosinophils # 0.4 K/mcL (0.0-0.6); Eosinophils % 3.9 %; Hematocrit 37.5 % (35.3-44.9); Hemoglobin 12.3 g/dL (11.5-15.4); Immature Granulocytes % 2.1 % (0-4); Lymphocytes # 1.3 K/mcL (0.6-4.6); Lymphocytes % 14.2 %; Mean Corpuscular HGB Conc 32.8 g/dL (31.6-35.5); Mean Corpuscular Hemoglobin 26.8 pg (28.0-33.3); Mean Corpuscular Volume 81.7 fL (83.0-100.0); Mean Platelet Volume 10.4 fL (9.4-12.4); Monocytes # 1.3 K/mcL (0.0-1.3); Monocytes % 14.8 %; Neutrophils # 5.7 K/mcL (1.6-8.9); Platelet Count 231 K/mcL (140-400); Red Blood Count 4.59 M/mcL (3.82-4.97); Red Cell Distribution Width 18.4 % (11.5-14.5); White Blood Count 8.9 K/mcL (4.3-11.1)
[2022-05-14 01:57] LABS: Albumin 3.5 g/dL (3.5-5.7); Albumin/Globulin Ratio 1.4 (1.1-2.2); Bilirubin,Total 1.6 mg/dL (0.3-1.0); Calcium 8.8 mg/dL (8.6-10.3); Globulin 2.5 g/dL (2.4-3.5); Potassium 3.9 mEq/L (3.5-5.1)
[2022-05-14] MEDS: Cefepime HCl 1,000 MG in 0.9 % Sodium Chloride Mini Bag 100 ML IVPB SCH (10:02)
[2022-05-14] MEDS: Magnesium Oxide 400 MG TABLET PO SCH (10:04)
[2022-05-14] MEDS: Lactobacillus 1 EACH CAP.SPRINK PO SCH (10:05)
[2022-05-14] MEDS: Loratadine 10 MG TABLET PO SCH (10:05)
[2022-05-14] MEDS: Aspirin Enteric Coated 81 MG Tablet PO SCH (10:05)
[2022-05-14] MEDS: metroNIDAZOLE 500 MG TABLET PO SCH ×3 (10:05→19:40)
[2022-05-14] MEDS: Apixaban 5 MG TABLET PO SCH ×2 (10:05→19:39)
[2022-05-14] MEDS: Metoprolol XL (24 HR) Succ 25 MG TAB.ER.24H PO SCH (10:05)
[2022-05-14] MEDS: Furosemide 40 MG/4 ML VIAL IVP SCH (10:06)
[2022-05-14] MEDS: diazePAM 5 MG TABLET PO SCH (19:40)
[2022-05-15 01:57] LABS: Basophils # 0.1 K/mcL (0.0-0.2); Basophils % 0.9 %; Eosinophils # 0.3 K/mcL (0.0-0.6); Eosinophils % 3.6 %; Hematocrit 36.4 % (35.3-44.9); Hemoglobin 11.9 g/dL (11.5-15.4); Lymphocytes # 1.2 K/mcL (0.6-4.6); Lymphocytes % 14.8 %; Mean Corpuscular HGB Conc 32.7 g/dL (31.6-35.5); Mean Corpuscular Volume 82.7 fL (83.0-100.0); Mean Platelet Volume 10.2 fL (9.4-12.4); Monocytes # 1.3 K/mcL (0.0-1.3); Monocytes % 15.7 %; Neutrophils # 5.1 K/mcL (1.6-8.9); Platelet Count 235 K/mcL (140-400); Red Cell Distribution Width 18.1 % (11.5-14.5)
[2022-05-15 02:17] LABS: Albumin 3.3 g/dL (3.5-5.7); Albumin/Globulin Ratio 1.3 (1.1-2.2); Bilirubin,Total 1.5 mg/dL (0.3-1.0); Calcium 8.7 mg/dL (8.6-10.3); Globulin 2.6 g/dL (2.4-3.5); Magnesium 2.2 mg/dL (1.6-2.6); Phosphorous 3.5 mg/dL (2.7-4.5); Potassium 3.8 mEq/L (3.5-5.1); Total Protein 5.9 g/dL (6.4-8.9)
[2022-05-15] MEDS ORDERED: Magnesium Oxide 400 MG TABLET PO ONE (06:43)
[2022-05-15] MEDS: Lactobacillus 1 EACH CAP.SPRINK PO SCH (08:35)
[2022-05-15] MEDS: Apixaban 5 MG TABLET PO SCH (08:35)
[2022-05-15] MEDS: metroNIDAZOLE 500 MG TABLET PO SCH ×2 (08:36→16:29)
[2022-05-15] MEDS: Aspirin Enteric Coated 81 MG Tablet PO SCH (08:36)
[2022-05-15] MEDS: Metoprolol XL (24 HR) Succ 25 MG TAB.ER.24H PO SCH (08:36)
[2022-05-15] MEDS: Loratadine 10 MG TABLET PO SCH (08:37)
[2022-05-15] MEDS: Magnesium Oxide 400 MG TABLET PO SCH (08:37)
[2022-05-15] MEDS: Cefepime HCl 1,000 MG in 0.9 % Sodium Chloride Mini Bag 100 ML IVPB SCH (08:45)
[2022-05-15 16:23] LABS: Adenovirus Not Detected (Not Detect); Bordetella Pertussis Not Detected (Not Detect); Chlamydophila pneumoniae Not Detected (Not Detect); Coronavirus 229E Not Detected (Not Detect); Coronavirus HKU1 Not Detected (Not Detect); Coronavirus NL63 Not Detected (Not Detect); Coronavirus OC43 Not Detected (Not Detect); Human Metapneumovirus Not Detected (Not Detect); Human Rhinovirus/Enterovirus Not Detected (Not Detect); Influenza A Subtype 2009 H1 Not Detected (Not Detect); Influenza B Not Detected (Not Detect); Mycoplasma pneumoniae Not Detected (Not Detect); Parainfluenza Virus 1 Not Detected (Not Detect); Parainfluenza Virus 2 Not Detected (Not Detect); Parainfluenza Virus 3 Not Detected (Not Detect); Parainfluenza Virus 4 Not Detected (Not Detect); Respiratory Syncytial Virus Not Detected (Not Detect); SARS-CoV-2 Not Detected (Not Detect)
[2022-05-15 19:36] VITALS: BP 127/71; PULSE 77; TEMP 97.5; O2SAT 96
== END 2022-05-15 20:05 | DRG 246 ==
LOC: 3NENU 16:43 → EMEROOARM 16:43 → SUATTDRO 21:29 → 3NENU 22:06 → SUATTDRO 05-03 11:42 → 2NNU 05-06 03:12 → 3ANU 05-10 11:28
PROVIDERS: ADMIT Internal Medicine; ATTEND Internal Medicine

== ENCOUNTER 2022-07-21 18:19 | Inpatient (IN) ==
[2022-07-21 20:03] LABS: Basophils # 0.1 K/mcL (0.0-0.2); Basophils % 0.4 %; Eosinophils # 0.1 K/mcL (0.0-0.6); Eosinophils % 0.4 %; Hematocrit 44.1 % (35.3-44.9); Hemoglobin 14.3 g/dL (11.5-15.4); Immature Granulocytes % 0.5 % (0-4); Lymphocytes # 1.6 K/mcL (0.6-4.6); Lymphocytes % 9.2 %; Mean Corpuscular HGB Conc 32.4 g/dL (31.6-35.5); Mean Corpuscular Hemoglobin 27.4 pg (28.0-33.3); Mean Corpuscular Volume 84.6 fL (83.0-100.0); Mean Platelet Volume 10.2 fL (9.4-12.4); Monocytes # 1.7 K/mcL (0.0-1.3); Monocytes % 10.3 %; Neutrophils # 13.3 K/mcL (1.6-8.9); Platelet Count 262 K/mcL (140-400); Red Blood Count 5.21 M/mcL (3.82-4.97); Red Cell Distribution Width 16.2 % (11.5-14.5); Segmented Neutrophils % 79.2 %; White Blood Count 16.8 K/mcL (4.3-11.1)
[2022-07-21 20:16] LABS: INR 1.8; Prothrombin Time 19.7 Seconds (9.4-12.1)
[2022-07-21 20:18] LABS: Activated Partial Thrombo Time 36.4 Seconds (26.0-36.0)
[2022-07-21 20:31] LABS: Alanine Aminotransferase 24 Units/L (7-52); Albumin 3.6 g/dL (3.5-5.7); Albumin/Globulin Ratio 1.2 (1.1-2.2); Alkaline Phosphatase 83 Units/L (34-104); Aspartate Amino Transferase 21 Units/L (13-39); BUN/Creatinine Ratio 30 (6-26); Bilirubin,Direct 0.2 mg/dL (0.0-0.2); Bilirubin,Indirect 0.5 mg/dL (0.0-1.0); Bilirubin,Total 0.7 mg/dL (0.3-1.0); Blood Urea Nitrogen 39 mg/dL (8-23); Calcium 9.9 mg/dL (8.6-10.3); Carbon Dioxide 15 mEq/L (23-29); Chloride 111 mEq/L (98-107); Ethanol < 10 mg/dL (Less than 10); Globulin 2.9 g/dL (2.4-3.5); Glucose 131 mg/dL (70-105); Osmolality,Calculated 293 (280-300); Potassium 3.7 mEq/L (3.5-5.1); Sodium 136 mEq/L (136-145); Total Protein 6.5 g/dL (6.4-8.9); Troponin I 0.06 ng/mL (< 0.04)
[2022-07-21 20:52] LABS: Bilirubin,Urine Negative (Negative); Blood,Urine Trace-lysed (Negative); Clarity,Urine Turbid (Clear); Color,Urine Yellow (Yellow); Glucose,Urine (UA) Normal (Normal); Ketones,Urine Negative (Negative); Leukocyte Esterase,Urine Small (Negative); Nitrite,Urine Negative (Negative); PH,Urine 8.5 pH Units (5.0-8.0); Protein,Urine >=300 mg/dL (Neg-Trace); Urobilinogen,Urine Normal (Normal)
[2022-07-21] MEDS ORDERED: 0.9 % Sodium Chloride 1,000 ML IV ONE (20:52)
[2022-07-21 21:00] LABS: Bacteria,Urine Many per hpf (None-Few); Calcium Oxalate Crystals,Urine Present per hpf; RBC,Urine 0-3 per hpf (0-3)
[2022-07-21] MEDS ORDERED: cephALEXin 500 MG CAPSULE PO ONE (21:01)
[2022-07-21 21:13] LABS: Amphetamine Screen,Urine Negative ng/mL (Cutoff=1000); Barbiturate Screen,Urine Negative ng/mL (Cutoff=200); Benzodiazepines Screen,Urine Positive ng/mL (Cutoff=200); Cannabinoid Screen,Urine Negative ng/mL (Cutoff = 50); Cocaine Screen,Urine Negative ng/mL (Cutoff= 300); Opiate Screen,Urine Negative ng/mL (Cutoff=300); Phencyclidine Screen,Urine Negative ng/mL (Cutoff=25)
[2022-07-21] MEDS ORDERED: cefTRIAXone 1,000 MG in Water for inj. (sterile) 10 ML IVP ONE (21:26)
[2022-07-21] MEDS ORDERED: Naloxone 0.4 MG/ML INJ IVP PRN (22:04)
[2022-07-21] MEDS ORDERED: Melatonin 3 MG TABLET PO PRN (22:04)
[2022-07-21] MEDS ORDERED: Acetaminophen 325 MG TABLET PO PRN (22:04)
[2022-07-21] MEDS ORDERED: *HR* HYDROcodone/Acet 5/325 mg TABLET PO PRN (22:04)
[2022-07-21] MEDS ORDERED: Ondansetron 4 MG/2 ML VIAL IVP PRN (22:04)
[2022-07-21] MEDS ORDERED: *HR* Dextrose 50 % in Water (Syg) 50 ML SYRINGE IVP PRN (22:12)
[2022-07-21] MEDS ORDERED: Dextrose Gel 15 GM/37.5 ML TUBE PO PRN ×2 (22:12)
[2022-07-21] MEDS ORDERED: D5% in Water 1,000 ML IVC PRN (22:12)
[2022-07-21] MEDS ORDERED: Ringers Solution, Lactated 1,000 ML IVC SCH (22:15)
[2022-07-22] MEDS ORDERED: *HR* Metoprolol 5 MG/5 ML VIAL IVP ONE (03:38)
[2022-07-22 05:58] LABS: Basophils # 0.1 K/mcL (0.0-0.2); Basophils % 0.5 %; Eosinophils # 0.3 K/mcL (0.0-0.6); Eosinophils % 1.4 %; Hematocrit 43.2 % (35.3-44.9); Hemoglobin 14.1 g/dL (11.5-15.4); Immature Granulocytes % 0.6 % (0-4); Lymphocytes % 9.6 %; Mean Corpuscular HGB Conc 32.6 g/dL (31.6-35.5); Mean Corpuscular Hemoglobin 27.2 pg (28.0-33.3); Mean Corpuscular Volume 83.2 fL (83.0-100.0); Mean Platelet Volume 10.7 fL (9.4-12.4); Monocytes # 2.5 K/mcL (0.0-1.3); Monocytes % 11.5 %; Neutrophils # 16.3 K/mcL (1.6-8.9); Platelet Count 290 K/mcL (140-400); Red Blood Count 5.19 M/mcL (3.82-4.97); Red Cell Distribution Width 16.2 % (11.5-14.5); Segmented Neutrophils % 76.4 %; White Blood Count 21.3 K/mcL (4.3-11.1)
[2022-07-22 06:06] LABS: INR 1.5; Prothrombin Time 16.9 Seconds (9.4-12.1)
[2022-07-22 06:07] LABS: Activated Partial Thrombo Time 32.6 Seconds (26.0-36.0)
[2022-07-22 06:42] LABS: Albumin 3.6 g/dL (3.5-5.7); Albumin/Globulin Ratio 1.2 (1.1-2.2); Bilirubin,Total 0.7 mg/dL (0.3-1.0); Calcium 9.7 mg/dL (8.6-10.3); Globulin 2.9 g/dL (2.4-3.5); Magnesium 1.7 mg/dL (1.6-2.6); Phosphorous 3.3 mg/dL (2.7-4.5); Potassium 3.5 mEq/L (3.5-5.1); Thyroid Stimulating Hormone 3.167 mcIU/mL (0.340-5.600); Total Protein 6.5 g/dL (6.4-8.9); Troponin I 0.05 ng/mL (< 0.04)
[2022-07-22] MEDS: cefTRIAXone 1,000 MG in 0.9 % Sodium Chloride Mini Bag 100 ML IVPB SCH (07:53)
[2022-07-22] MEDS: Apixaban 5 MG TABLET PO SCH ×2 (07:57→20:13)
[2022-07-22] MEDS: Aspirin Enteric Coated 81 MG Tablet PO SCH (07:57)
[2022-07-22] MEDS ORDERED: Metoprolol XL (24 HR) Succ 25 MG TAB.ER.24H PO SCH (09:00)
[2022-07-22] MEDS: Sodium Bicarbonate 75 MEQ in 0.45 % Sodium Chloride 1,000 ML IVC SCH (11:28)
[2022-07-22 12:51] LABS: ABG Base Excess -9 mEq/L (-2 to 3); ABG HCO3 12 mEq/L (21-27); ABG Oxygen Saturation 97 % (95-98); ABG PCO2 17 mmHg (35-45); ABG PH 7.47 pH Units (7.32-7.45); ABG PO2 85 mmHg (85-104); ABG TCO2 13 mEq/L (20-26)
[2022-07-22] MEDS: *HR* Metoprolol 5 MG/5 ML VIAL IVP PRN (13:41)
[2022-07-22] MEDS: diazePAM 5 MG TABLET PO SCH (20:14)
[2022-07-23] MEDS: Sodium Bicarbonate 75 MEQ in 0.45 % Sodium Chloride 1,000 ML IVC SCH (02:38)
[2022-07-23 03:00] LABS: Basophils # 0.1 K/mcL (0.0-0.2); Basophils % 0.3 %; Eosinophils % 0.1 %; Hematocrit 41.3 % (35.3-44.9); Hemoglobin 13.6 g/dL (11.5-15.4); Lymphocytes # 1.6 K/mcL (0.6-4.6); Lymphocytes % 7.9 %; Mean Corpuscular HGB Conc 32.9 g/dL (31.6-35.5); Mean Corpuscular Hemoglobin 27.2 pg (28.0-33.3); Mean Corpuscular Volume 82.6 fL (83.0-100.0); Mean Platelet Volume 10.5 fL (9.4-12.4); Monocytes # 1.9 K/mcL (0.0-1.3); Monocytes % 9.7 %; Neutrophils # 15.9 K/mcL (1.6-8.9); Platelet Count 261 K/mcL (140-400); Red Cell Distribution Width 16.3 % (11.5-14.5); White Blood Count 19.6 K/mcL (4.3-11.1)
[2022-07-23 03:18] LABS: Calcium 9.5 mg/dL (8.6-10.3); Magnesium 1.6 mg/dL (1.6-2.6); Phosphorous 3.9 mg/dL (2.7-4.5); Potassium 3.6 mEq/L (3.5-5.1)
[2022-07-23] MEDS: cefTRIAXone 1,000 MG in 0.9 % Sodium Chloride Mini Bag 100 ML IVPB SCH (07:57)
[2022-07-23] MEDS: *HR* Metoprolol 5 MG/5 ML VIAL IVP PRN (07:58)
[2022-07-23] MEDS: Aspirin Enteric Coated 81 MG Tablet PO SCH (07:59)
[2022-07-23] MEDS: Apixaban 5 MG TABLET PO SCH ×2 (07:59→20:12)
[2022-07-23] MEDS: Loratadine 10 MG TABLET PO SCH (08:09)
[2022-07-23] MEDS: Megestrol Acetate 400 MG/10 ML UDC PO SCH (08:10)
[2022-07-23] MEDS ORDERED: Metoprolol XL (24 HR) Succ 25 MG TAB.ER.24H PO SCH (09:00)
[2022-07-23] MEDS ORDERED: Metoprolol XL (24 HR) Succ 25 MG TAB.ER.24H PO ONE (12:10)
[2022-07-23] MEDS: diazePAM 5 MG TABLET PO SCH (20:12)
[2022-07-24 02:54] LABS: Basophils % 0.2 %; Eosinophils # 0.1 K/mcL (0.0-0.6); Eosinophils % 0.3 %; Hematocrit 40.8 % (35.3-44.9); Hemoglobin 13.4 g/dL (11.5-15.4); Immature Granulocytes % 0.7 % (0-4); Lymphocytes # 1.4 K/mcL (0.6-4.6); Lymphocytes % 8.7 %; Mean Corpuscular HGB Conc 32.8 g/dL (31.6-35.5); Mean Corpuscular Hemoglobin 27.3 pg (28.0-33.3); Mean Corpuscular Volume 83.1 fL (83.0-100.0); Mean Platelet Volume 10.8 fL (9.4-12.4); Monocytes % 12.3 %; Neutrophils # 12.9 K/mcL (1.6-8.9); Platelet Count 249 K/mcL (140-400); Red Blood Count 4.91 M/mcL (3.82-4.97); Red Cell Distribution Width 16.6 % (11.5-14.5); Segmented Neutrophils % 77.8 %; White Blood Count 16.6 K/mcL (4.3-11.1)
[2022-07-24 03:14] LABS: Calcium 9.8 mg/dL (8.6-10.3); Magnesium 1.7 mg/dL (1.6-2.6); Phosphorous 3.4 mg/dL (2.7-4.5); Potassium 3.5 mEq/L (3.5-5.1)
[2022-07-24] MEDS: Loratadine 10 MG TABLET PO SCH (07:46)
[2022-07-24] MEDS: Aspirin Enteric Coated 81 MG Tablet PO SCH (07:46)
[2022-07-24] MEDS: cefTRIAXone 1,000 MG in 0.9 % Sodium Chloride Mini Bag 100 ML IVPB SCH (07:47)
[2022-07-24] MEDS: Apixaban 5 MG TABLET PO SCH (07:47)
[2022-07-24] MEDS ORDERED: Metoprolol XL (24 HR) Succ 25 MG TAB.ER.24H PO SCH (09:00)
[2022-07-24] MEDS: Megestrol Acetate 400 MG/10 ML UDC PO SCH (09:11)
[2022-07-24 10:03] LABS: ABG Base Excess -2 mEq/L (-2 to 3); ABG HCO3 21 mEq/L (21-27); ABG Oxygen Saturation 95 % (95-98); ABG PCO2 30 mmHg (35-45); ABG PH 7.46 pH Units (7.32-7.45); ABG PO2 70 mmHg (85-104); ABG TCO2 22 mEq/L (20-26)
[2022-07-24] MEDS ORDERED: *HR* LORazepam Oral Conc 2 MG/ML SL PRN (12:27)
[2022-07-24] MEDS ORDERED: Hyoscyamine SL 0.125 MG TAB.SUBL SL PRN (12:28)
[2022-07-25 13:40] LABS: Calcium 9.8 mg/dL (8.6-10.3); Potassium 3.4 mEq/L (3.5-5.1)
[2022-07-25] MEDS ORDERED: *HR* LORazepam Oral Conc 2 MG/ML SL PRN (14:32)
[2022-07-25] MEDS ORDERED: *HR* OxyCODONE Immed Rel 5 MG TABLET PO ONE (16:27)
[2022-07-25] MEDS ORDERED: *HR* HYDROmorphone (PF) 1 MG/ML SYRINGE IVP PRN (19:18)
[2022-07-25] MEDS: *HR* LORazepam Oral Conc 2 MG/ML SL PRN (21:54)
[2022-07-26 06:48] LABS: Calcium 9.8 mg/dL (8.6-10.3); Potassium 3.3 mEq/L (3.5-5.1)
[2022-07-26] MEDS: *HR* LORazepam 2 MG/ML VIAL IVP PRN (18:02)
[2022-07-27] MEDS: *HR* LORazepam 2 MG/ML VIAL IVP PRN (18:04)
[2022-07-28] MEDS ORDERED: Acetaminophen 650 MG RECTAL SUPP RC PRN (09:19)
[2022-07-28] MEDS: *HR* LORazepam Oral Conc 2 MG/ML SL PRN (10:30)
[2022-07-28 20:03] VITALS: BP 81/57; PULSE 160; TEMP 98.9; O2SAT 83
[2022-07-28] MEDS ORDERED: Artificial Tears SOLN 15 ML BOTTLE BOTH EYES PRN (20:31)
== END 2022-07-29 02:30 | disposition expired | DRG 689 ==
LOC: EMEROOARM 18:19 → 4WAOSI 18:19 → SUATTDRO 21:42 → 3BNU 21:53 → SUATTDRO 07-22 13:39 → 2ANU 07-25 15:07
PROVIDERS: ADMIT Internal Medicine; ATTEND General Practice